=== PATIENT | female | born 1990 | race American Indian/Alaskan Native ===

== ENCOUNTER 2018-12-04 14:47 | Outpatient (CLI) | payer MEDICAID ==
[2018-12-04 15:19] VITALS: BP 136/65
[2018-12-04] MEDS ORDERED: LACTATED RINGERS 500 ML IV ONE (15:44)
[2018-12-04 16:04] LABS: Bilirubin,Urine NEG (Negative); Blood,Urine NEG (Negative); Color,Urine Yellow (Yellow); Mucus,Urine FEW /HPF; Protein,Urine <15 mg/dL mg/dL (Negative); Urobilinogen,Urine < 2.0 mg/dL (<2.0)
== END 2018-12-04 16:52 | disposition home or self-care (01) ==
LOC: TRG 14:47
PROVIDERS: ATTEND Obstetrics & Gynecology
DX: O47.03 False labor before 37 completed weeks of gestation, third trimester (principal); Z3A.30 30 weeks gestation of pregnancy
CPT/HCPCS: 81001; 87086

== ENCOUNTER 2019-03-16 11:12 | Emergency (ER) | payer OTHER, MEDICAID ==
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
[2019-03-16 11:28] VITALS: BP 123/86
--- NOTE | 2019-03-16 12:16 | XRay Report ---
CERVICAL SPINE, 3 VIEWS INDICATION: neck pain. COMPARISON: None. IMPRESSION: Normal alignment. There is straightening of the normal cervical lordosis which could be secondary to positioning. No significant discogenic DJD or facet arthropathy. No acute osseous or so ft tissue abnormality. Signer Name: Jesús Arias Jr, MD Signed: 03/16/2019 12:11 PM Workstation Name: [id number]
== END 2019-03-16 13:30 | disposition left against medical advice (07) ==
LOC: ED 11:12
DX: M54.2 Cervicalgia (principal); Z53.21 Procedure and treatment not carried out due to patient leaving prior to being seen by health care provider
CPT/HCPCS: 72040